=== PATIENT | male | born 1980 | race Caucasian/White ===

== ENCOUNTER 2016-08-23 22:24 | Emergency (ER) | payer OTHER ==
[2016-08-23 22:29] VITALS: BP 153/78; PULSE 73; TEMP 97.2; BMI 25.9
--- NOTE | 2016-08-23 23:24 | PDOC ---
History of Present Illness - General Chief Complaint: Bite Stated Complaint: DOG BITE Time Seen by Provider: 08/23/16 22:56 History Source: Patient Exam Limitations: No Limitations - History of Present Illness Occurred: reports: just prior to arrival Upper Extremity Pain Location: right: hand Extremity Pain Location - Extremity Pain Location Extremity Pain Locations: right: hand Past History - Travel Traveled outside of the country in the last 30 days: No Close contact w/someone who was outside of country & ill: No - Past Medical History Allergies/Adverse Reactions: Allergies Allergy/AdvReac Type Severity Reaction Status Date / Time Penicillins Allergy Verified 08/23/16 23:18 Home Medications: Ambulatory Orders Doxycycline Hyclate 100 mg PO BID #10 capsule 08/23/16 Other medical history: Denies - Immunization History Immunization Up to Date: No - Psycho/Social/Smoking Cessation Hx Anxiety: No Suicidal Ideation: No Smoking History: Never smoked Have you smoked in the past 12 months: No Information on smoking cessation initiated: No Hx Alcohol Use: No Drug/Substance Use Hx: No Substance Use Type: None Review of Systems - Review of Systems Able to Perform ROS?: Yes Comments:: 08/23/16 23:23 Right hand 1cm horizontal lac to mid 2nd dosral mc neg ext numbness/tingling sensation Is the patient limited [place] proficient: No *Physical Exam - Vital Signs Last Vital Signs Temp Pulse Resp BP Pulse Ox 97.2 F L 73 18 153/78 99 08/23/16 22:27 08/23/16 22:27 08/23/16 22:27 08/23/16 22:27 08/23/16 22:27 - Physical Exam Comments: 08/23/16 23:52 Right hand 1cm pw lac to dorsal 2nd mid mc +slight swelling 2 point discrimination intact (sharp/soft) neg lymphangitis right fingers F.R>O.M. 2+cap refill ED Treatment Course - RADIOLOGY Radiograph Interpretation: 08/24/16 00:18 XR right hand: neg fx/fx/dislocations Progress Note - Progress Note Progress Note: 35-year-old male who is right hand dominant presents to the emergency department complaining of a puncture wound to the right dorsal second mid metacarpal region after his dog bit him. Patient states while trying to retrieve a bilateral lid that wasn't his dog's mouth, the dog bit down but released immediately. He denies any extremity numbness or tingling sensation. Bleeding subsided prior to his arrival to the emergency department. Unknown last tetanus. Patient states his dog's immunizations are up-to-date. Procedure: 1 cm laceration to the right dorsal second mid metacarpal region 1% lidocaine: 2 mL/local anesthesia to the wound Copious amount of normal saline irrigation Telfa Curlex *DC/Admit/Observation/Transfer Diagnosis at time of Disposition: Dog bite, hand Qualifiers: Encounter type: initial encounter Laterality: right Qualified Code(s): S61.451A - Open bite of right hand, initial encounter - Discharge Dispostion Disposition: HOME Condition at time of disposition: Fair - Prescriptions Prescriptions: Doxycycline Hyclate 100 mg PO BID #10 capsule - Patient Instructions Printed Discharge Instructions: DI for Animal Bites Additional Instructions: Elevate You claims to be ALLERGIC to penicillin so you will be put on doxycycline 100 mg : Take 1 tablet twice a day until completion Follow with your physician in 2 days for wound check Return back to the emergency department immediately if you notice any red streaks, numbness or tingling sensation, severe pain or signs of further infection: Discharge from the wound, extreme redness, increased pain
[2016-08-23] MEDS ORDERED: DOXYCYCLINE HYCLATE 100 MG CAPSULE PO ONE (23:25)
[2016-08-23] MEDS ORDERED: TETANUS AND DIPHTHERIA TOXOID 0.5 ML DISP.SYRIN IM ONE (23:25)
== END 2016-08-24 00:35 | disposition home or self-care (01) ==
LOC: SUPCPDRO 22:24 → JER 22:24 → JERFT 22:24 → JER 08-24 00:35
PROC: 3E0234Z Introduction of Serum, Toxoid and Vaccine into Muscle, Percutaneous Approach (ICD-10-PCS; principal; 2016-08-23)
DX: S61.451A Open bite of right hand, initial encounter (principal); W54.0XXA Bitten by dog, initial encounter; Y93.89 Activity, other specified; Y92.038 Other place in apartment as the place of occurrence of the external cause
CPT/HCPCS: 73130-TC-RT; 99282-25

== ENCOUNTER 2022-09-23 17:39 | Emergency (ER) | payer OTHER ==
[2022-09-23] MEDS ORDERED: IBUPROFEN 600 MG TABLET (FP) PO ONE ×2 (17:56→18:09)
[2022-09-23 17:57] VITALS: BP 147/91; PULSE 88; RESP 16; TEMP 98.7; BMI 28.1
== END 2022-09-23 19:59 | disposition home or self-care (01) ==
LOC: FER 17:39
DX: M25.572 Pain in left ankle and joints of left foot (principal)
CPT/HCPCS: 73610-TC-LT-FY; 73630-TC-LT; 99283-25